=== PATIENT | female | born 1990 | race American Indian/Alaskan Native ===

== ENCOUNTER 2018-04-23 02:27 | Emergency (ER) | payer SELFPAY | END 2018-04-23 02:40 | disposition left against medical advice (07) | LOC: ED 02:27 ==

== ENCOUNTER 2019-01-01 22:43 | Emergency (ER) | payer SELFPAY ==
[2019-01-01 22:52] VITALS: BP 108/64
== END 2019-01-01 23:52 | disposition left against medical advice (07) ==
LOC: ED 22:43
DX: K08.89 Other specified disorders of teeth and supporting structures (principal); Z53.21 Procedure and treatment not carried out due to patient leaving prior to being seen by health care provider

== ENCOUNTER 2019-03-19 13:36 | Outpatient (CLI) | payer MEDICAID ==
[2019-03-19] MEDS ORDERED: LACTATED RINGERS 1,000 ML ONE (14:32)
[2019-03-19 16:48] VITALS: BP 113/64
[2019-03-19] MEDS ORDERED: LACTATED RINGERS 1,000 ML IV SCH (17:00)
--- NOTE | 2019-03-19 17:38 | Event Note ---
Date: 03/19/19 (Pt still with contractions) Pt presented to triage with c/o feeling pressure in the vaginal area. EFM was initiated and pt was found to be having irregular contractions. Cervical exam was cl/th/hi. Pt also states that she was breech on last U/S scan. Today's scan baby is cephalic. EFM after scan found pt to still be preethi every 2-4 minutes apart. Pt states that she feels dehydrated. she has had 1 liter of fluid. Will receive a second liter with a dose of terbutaline. Cervical exam remains cl/th/hi. Dr. Perez aware. will continue to monitor pt.
--- NOTE | 2019-03-19 18:11 | Ultrasound Report ---
Limited OB Ultrasound HISTORY: positioning. TECHNIQUE: Grayscale and color Doppler imaging performed. COMPARISON: None FINDINGS: There is a single viable intrauterine gestation with cephalic presentation. Placental posit ion was not assessed. PAWAN was not assessed. The heart rate is 135 bpm. IMPRESSION: Cephalic presentation as outlined above on this very limited exam. Signer Name: Jonn Xie MD Signed: 03/19/2019 6:07 PM Workstation Name: [id number]
[2019-03-19] MEDS ORDERED: LACTATED RINGERS 1,000 ML IV ONE (18:20)
[2019-03-19] MEDS ORDERED: TERBUTALINE 1 MG/1 ML INJ SUB-Q ONE ×2 (18:24→18:31)
--- NOTE | 2019-03-19 18:34 | Event Note ---
Date: 03/19/19 (Pt sitting up in triage eating) Pt now states she is no longer feeling contractions. monitor strip has remained category 1. She is s/p 2 liter bolus and administration of terbutaline. Contractions on monitor have spaced out and now are irregular. Cervical exam has remained cl/th/hi while in triage. Pt is sitting up eating. Pt to be dis charged home with strict labor precautions and encouraged to keep her scheduled appointment in office.
== END 2019-03-19 18:54 | disposition home or self-care (01) ==
LOC: TRG 13:36
PROVIDERS: ATTEND Obstetrics & Gynecology
DX: O62.9 Abnormality of forces of labor, unspecified (principal); O26.893 Other specified pregnancy related conditions, third trimester; R10.2 Pelvic and perineal pain; Z3A.34 34 weeks gestation of pregnancy
CPT/HCPCS: 59025; 76815; 96360; 96361; 96372; J3105; J7120

== ENCOUNTER 2019-04-13 11:29 | Outpatient (CLI) | payer MEDICAID ==
[2019-04-13 11:55] VITALS: BP 116/75
--- NOTE | 2019-04-13 14:11 | Ultrasound Report ---
US OB limited, US OB BPP wo non-stress INDICATION / CLINICAL INFORMATION: decreased fm. COMPARISON: 03/19/2019 FINDINGS: Single, viable intrauterine . heart rate 143. Amniotic fluid volume is within normal limits, with a fluid index of 20 cm. Cephalic presentation. Placenta is posterior. Biophysical profile: breathing movements: 2 movements: 2 posture and tone: 2 Amniotic fluid volume: 2 Total biophysical profile score: 8/8 IMPRESSION: 1. Single, viable intrauterine in cephalic presentation. 2. Biophysical profile score 8/8. Signer Name: Louis Mccann MD Signed: 04/13/2019 2:06 PM Workstation Name: [id number]
== END 2019-04-13 14:28 | disposition home or self-care (01) ==
LOC: TRG 11:29
PROVIDERS: ATTEND Obstetrics & Gynecology
DX: O36.8130 Decreased fetal movements, third trimester, not applicable or unspecified (principal); Z3A.38 38 weeks gestation of pregnancy
CPT/HCPCS: 59025; 76815; 76819